=== PATIENT | female | born 1985 | race Caucasian/White ===

== ENCOUNTER 2016-11-24 19:20 | Emergency (ER) | payer OTHER ==
[~2016-11-24] VITALS: Ht 167.6 cm; Wt 135.0 kg
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
[~2016-11-24 19:20] MED LIST: FLEXERIL10 M1; IBUPROFEN; LISINOPRIL PO; MAGIC MOUTHWASH; MAGIC MOUTHWASH PO; MOBIC; PERCOCET7.5 PO; ZOFRAN ODT4 MG/UDTAB PO
[2016-11-24] MEDS ORDERED: ZOLOFT (19:30)
== END 2016-11-24 21:30 | disposition home or self-care (01) ==
LOC: SED 19:20
DX: S39.012A Strain of muscle, fascia and tendon of lower back, initial encounter (principal); S16.1XXA Strain of muscle, fascia and tendon at neck level, initial encounter; M54.32 Sciatica, left side; V89.2XXA Person injured in unspecified motor-vehicle accident, traffic, initial encounter; Y92.410 Unspecified street and highway as the place of occurrence of the external cause
CPT/HCPCS: 72072; 72100; 99283